=== PATIENT | female | born 1955 | race Native Hawaiian/Other Pacific Islander ===

== ENCOUNTER 2017-11-07 08:39 | Emergency (ER) | payer OTHER ==
[~2017-11-07] VITALS: Ht 170.2 cm; Wt 72.6 kg
[2017-11-07 09:47] LABS: PLATELET COUNT 258 K/uL (152-353)
[2017-11-07 09:54] LABS: POTASSIUM 3.2 mmol/L (3.6-5.2)
[2017-11-07 11:47] VITALS: BP 151/75; TEMP 98
== END 2017-11-07 11:55 | disposition home or self-care (01) ==
LOC: ED 08:39
PROVIDERS: Emergency Medicine
DX: J44.1 Chronic obstructive pulmonary disease with (acute) exacerbation (principal)
CPT/HCPCS: 36415; 80053; 85027; 87804; 94664; 96372; 99283; J0696; J1100; J1885

== ENCOUNTER 2020-07-22 11:04 | Emergency (ER) | payer OTHER ==
[~2020-07-22] VITALS: Ht 170.2 cm; Wt 70.3 kg
[2020-07-22 11:23] VITALS: BP 176/77; TEMP 99.8
== END 2020-07-22 13:45 | disposition home or self-care (01) ==
LOC: ED 11:04
PROC: 2Y41X5Z Packing of Nasal Region using Packing Material (ICD-10-PCS; principal; 2020-07-22)
DX: S02.2XXA Fracture of nasal bones, initial encounter for closed fracture (principal); R04.0 Epistaxis; W50.0XXA Accidental hit or strike by another person, initial encounter; Y92.89 Other specified places as the place of occurrence of the external cause
CPT/HCPCS: 99283

== ENCOUNTER 2020-07-27 09:50 | Outpatient (CLI) | payer OTHER ==
[2020-07-27 10:40] LABS: POTASSIUM 4.3 mmol/L (3.6-5.2)
== END 2020-07-27 22:52 | disposition home or self-care (01) ==
LOC: RESP 09:50
DX: I10 Essential (primary) hypertension (principal); E11.9 Type 2 diabetes mellitus without complications
CPT/HCPCS: 36415; 80048; 93005

== ENCOUNTER 2021-10-26 12:44 | Emergency (ER) | payer OTHER ==
[~2021-10-26] VITALS: Ht 170.2 cm; Wt 70.3 kg
[2021-10-26 12:55] VITALS: BP 174/62; TEMP 97.9
== END 2021-10-26 14:50 | disposition home or self-care (01) ==
LOC: ED 12:44
DX: S16.1XXA Strain of muscle, fascia and tendon at neck level, initial encounter (principal); S39.012A Strain of muscle, fascia and tendon of lower back, initial encounter; W01.0XXA Fall on same level from slipping, tripping and stumbling without subsequent striking against object, initial encounter; Y92.218 Other school as the place of occurrence of the external cause
CPT/HCPCS: 96372; 99283; J1885

== ENCOUNTER 2022-11-14 11:50 | Day surgery (SDC) | payer OTHER ==
[~2022-11-14] VITALS: Ht 165.1 cm; Wt 68.0 kg
== END 2022-11-14 14:50 ==
LOC: OR 11:50
PROVIDERS: ATTEND Internal Medicine Gastroenterology
PROC: 0DBP8ZZ Excision of Rectum, Via Natural or Artificial Opening Endoscopic (ICD-10-PCS; principal; 2022-11-14)
DX: K62.1 Rectal polyp (principal); K63.5 Polyp of colon; K57.30 Diverticulosis of large intestine without perforation or abscess without bleeding; K64.8 Other hemorrhoids; R19.5 Other fecal abnormalities; Z86.010 Personal history of colon polyps; Z12.11 Encounter for screening for malignant neoplasm of colon
CPT/HCPCS: J2704; J7120